=== PATIENT | male | born 1980 | race African-American/Black ===

== ENCOUNTER 2017-02-12 22:42 | Emergency (ER) | payer MEDICAID ==
[~2017-02-12] VITALS: Ht 185.4 cm; Wt 82.4 kg
[~2017-02-12 22:42] MED LIST: DOXY100C15 PO; HYDR-3138 PO; LACT1CAP24 PO; SULF1TAB24 PO
[2017-02-12 22:44] VITALS: BP 123/85
== END 2017-02-13 00:59 | disposition home or self-care (01) ==
LOC: ED 23:59
DX: S39.012A Strain of muscle, fascia and tendon of lower back, initial encounter (principal); M51.36 Other intervertebral disc degeneration, lumbar region; M54.41 Lumbago with sciatica, right side; F17.210 Nicotine dependence, cigarettes, uncomplicated; X58.XXXA Exposure to other specified factors, initial encounter; Y93.89 Activity, other specified; Y99.8 Other external cause status; Y92.89 Other specified places as the place of occurrence of the external cause
CPT/HCPCS: 72110; 99284